=== PATIENT | female | born 1940 | race Caucasian/White ===

== ENCOUNTER 2021-06-18 16:12 | Emergency (ER) | payer OTHER ==
[~2021-06-18] VITALS: Ht 175.3 cm; Wt 102.1 kg
[2021-06-18] MEDS ORDERED: ACETAMINOPHEN500 M1 PO (16:26)
[2021-06-18] MEDS ORDERED: IRON325 PO (16:27)
[2021-06-18] MEDS ORDERED: CARVEDILOL25 MG PO (16:27)
[2021-06-18] MEDS ORDERED: HYDROCHLOROTH12.5 M1 PO (16:28)
[2021-06-18] MEDS ORDERED: LOPERAMIDE 2 MG2 M1 PO (16:28)
[2021-06-18] MEDS ORDERED: LEVO-T50 MCG PO (16:29)
[2021-06-18] MEDS ORDERED: COZAAR 25 MG TA25 M1 PO (16:29)
[2021-06-18] MEDS ORDERED: MELATONIN3 M1 PO (16:29)
[2021-06-18] MEDS ORDERED: MAXIMUM DAILY1 EACH PO (16:30)
[2021-06-18] MEDS ORDERED: OMEPRAZOLE 20 M20 M1 PO (16:31)
[2021-06-18] MEDS ORDERED: SENNA PLUS TAB1 EACH PO (16:31)
[2021-06-18] MEDS ORDERED: MYRBETRIQ25 MG PO (16:31)
[2021-06-18] MEDS ORDERED: KLOR-CON M2020 MEQ PO (16:31)
[2021-06-18] MEDS ORDERED: SEROQUEL 25 MG25 M1 PO (16:32)
[2021-06-18] MEDS ORDERED: VOLTAREN ARTHRI20 GM TOP (16:33)
[2021-06-18] MEDS ORDERED: ZOLOFT100 MG PO (16:33)
[2021-06-18 17:48] LABS: URINE BILIRUBIN NEGATIVE (Negative); URINE BLOOD 1+ (Negative); URINE COLOR YELLOW; URINE GLUCOSE-RANDOM* NEGATIVE (Negative); URINE KETONES NEGATIVE (Negative); URINE PROTEIN (DIPSTICK) NEGATIVE (Negative); URINE SPECIFIC GRAVITY 1.015 (1.005-1.035); URINE UROBILINOGEN 0.2 E.U./dl (0.2-1.0)
[2021-06-18 17:50] LABS: URINE LEUKOCYTES-REFLEX 3+ (Negative); URINE NITRITE-REFLEX POSITIVE (Negative)
[2021-06-18 17:51] LABS: ABSOLUTE NEUTROPHILS 5.3 thou/uL (1.4-8.2); BASOPHILS 0.6 % (0.0-2.0); EOSINOPHILS 2.5 % (0.0-3.0); HEMATOCRIT 37.5 % (37.0-47.0); HEMOGLOBIN 12.1 gm/dL (12.0-15.0); LYMPHOCYTES 31.4 % (24.0-44.0); MCHC 32.4 g/dL (28.0-37.0); MCV 89.5 fL (80.0-100.0); MONOCYTES 6.8 % (1.0-8.0); PLATELET COUNT 229 thou/uL (150-400); POLYS 58.7 % (36.0-66.0); RBC 4.18 mil/uL (4.20-5.00); RDW 14.9 % (10.5-14.5); WBC 9.1 thou/uL (4.0-11.0)
[2021-06-18 17:51] LABS: URINE CLARITY HAZY
[2021-06-18 17:57] LABS: AMP/METHAMP Negative (Negative); BARBITURATES Negative (Negative); BENZODIAZEPINES Negative (Negative); COCAINE Negative (Negative); METHADONE Negative (Negative); OPIATES Negative (Negative); PCP Negative (Negative)
[2021-06-18 18:02] LABS: ANION GAP 9 mmol/L (7-16); BUN 15 mg/dL (7-18); CALCIUM 8.6 mg/dL (8.5-10.1); CHLORIDE 106 mmol/L (98-107); CO2 27 mmol/L (21-32); CREATININE 0.9 mg/dL (0.6-1.0); GLUCOSE 73 mg/dL (74-106); POTASSIUM 3.2 mmol/L (3.5-5.1); SODIUM 142 mmol/L (136-145)
[2021-06-18 18:06] LABS: BACTERIA-REFLEX >30 Many /HPF (None Seen); SQUAMOUS 0-3 Few /LPF (0-3); URINE RBC 3-10 Few /HPF (NONE SEEN); URINE WBC-REFLEX >25 Many /HPF (0-5)
[2021-06-18 18:07] LABS: CASTS None Seen /LPF (None Seen); CRYSTALS None Seen /LPF (None Seen)
[2021-06-18 18:08] LABS: DIRECT BILIRUBIN 0.1 mg/dL (<0.1-0.2); SALICYLATE < 2.8 mg/dL (2.8-20.0); SGOT 27 U/L (15-37); SGPT 20 U/L (14-59); TOTAL BILIRUBIN 0.4 mg/dL (0.2-1.0); TOTAL PROTEIN 6.9 g/dL (6.4-8.2)
[2021-06-19 00:50] VITALS: BP 156/63
[2021-06-19] MEDS ORDERED: CARVEDILOL25 MG PO (02:12)
[2021-06-19] MEDS ORDERED: SLOW FE142 MG PO (02:13)
[2021-06-19] MEDS ORDERED: LOPERAMIDE 2 MG2 M1 PO (02:14)
[2021-06-19] MEDS ORDERED: HYDROCHLOROTHIA25 M1 PO (02:14)
[2021-06-19] MEDS ORDERED: COZAAR 25 MG TA25 M1 PO (02:15)
[2021-06-19] MEDS ORDERED: LEVO-T50 MCG PO (02:15)
[2021-06-19] MEDS ORDERED: MELATONIN3 M1 PO (02:16)
[2021-06-19] MEDS ORDERED: SUPER THERAVIT1 EACH PO (02:18)
[2021-06-19] MEDS ORDERED: MYRBETRIQ25 MG PO (02:19)
[2021-06-19] MEDS ORDERED: OMEPRAZOLE40 MG PO (02:19)
[2021-06-19] MEDS ORDERED: KLOR-CON M2020 MEQ PO (02:20)
[2021-06-19] MEDS ORDERED: SENNA PLUS TAB1 EACH PO (02:21)
[2021-06-19] MEDS ORDERED: SEROQUEL 25 MG25 MG PO (02:22)
[2021-06-19] MEDS ORDERED: VOLTAREN ARTHRI20 GM TOP (02:23)
[2021-06-19] MEDS ORDERED: ZOLOFT100 MG PO (02:23)
== END 2021-06-19 00:51 | disposition admitted as inpatient to this hospital (09) ==
LOC: ER 16:12
PROVIDERS: Nurse Practitioner
DX: F91.9 Conduct disorder, unspecified (principal); Z20.822 Contact with and (suspected) exposure to COVID-19; E78.5 Hyperlipidemia, unspecified; F02.80 Dementia in other diseases classified elsewhere, unspecified severity, without behavioral disturbance, psychotic disturbance, mood disturbance, and anxiety; I10 Essential (primary) hypertension; K21.9 Gastro-esophageal reflux disease without esophagitis; M81.0 Age-related osteoporosis without current pathological fracture; Z85.038 Personal history of other malignant neoplasm of large intestine; Z79.891 Long term (current) use of opiate analgesic; Z79.1 Long term (current) use of non-steroidal anti-inflammatories (NSAID); Z79.899 Other long term (current) drug therapy; Z88.5 Allergy status to narcotic agent; Z88.8 Allergy status to other drugs, medicaments and biological substances; Z91.041 Radiographic dye allergy status

== ENCOUNTER 2021-06-18 16:19 | Inpatient (IN) | payer OTHER ==
[~2021-06-18] VITALS: Ht 175.3 cm; Wt 86.6 kg
[2021-06-18] MEDS ORDERED: ACETAMINOPHEN500 M1 PO (16:26)
[2021-06-18] MEDS ORDERED: CARVEDILOL25 MG PO (16:27)
[2021-06-18] MEDS ORDERED: IRON325 PO (16:27)
[2021-06-18] MEDS ORDERED: LOPERAMIDE 2 MG2 M1 PO (16:28)
[2021-06-18] MEDS ORDERED: HYDROCHLOROTH12.5 M1 PO (16:28)
[2021-06-18] MEDS ORDERED: LEVO-T50 MCG PO (16:29)
[2021-06-18] MEDS ORDERED: MELATONIN3 M1 PO (16:29)
[2021-06-18] MEDS ORDERED: COZAAR 25 MG TA25 M1 PO (16:29)
[2021-06-18] MEDS ORDERED: MAXIMUM DAILY1 EACH PO (16:30)
[2021-06-18] MEDS ORDERED: OMEPRAZOLE 20 M20 M1 PO (16:31)
[2021-06-18] MEDS ORDERED: SENNA PLUS TAB1 EACH PO (16:31)
[2021-06-18] MEDS ORDERED: MYRBETRIQ25 MG PO (16:31)
[2021-06-18] MEDS ORDERED: KLOR-CON M2020 MEQ PO (16:31)
[2021-06-18] MEDS ORDERED: SEROQUEL 25 MG25 M1 PO (16:32)
[2021-06-18] MEDS ORDERED: VOLTAREN ARTHRI20 GM TOP (16:33)
[2021-06-18] MEDS ORDERED: ZOLOFT100 MG PO (16:33)
[2021-06-19 02:07] VITALS: BP 168/65
[2021-06-19] MEDS ORDERED: CARVEDILOL25 MG PO (02:12)
[2021-06-19] MEDS ORDERED: SLOW FE142 MG PO (02:13)
[2021-06-19] MEDS ORDERED: LOPERAMIDE 2 MG2 M1 PO (02:14)
[2021-06-19] MEDS ORDERED: HYDROCHLOROTHIA25 M1 PO (02:14)
[2021-06-19] MEDS ORDERED: LEVO-T50 MCG PO (02:15)
[2021-06-19] MEDS ORDERED: COZAAR 25 MG TA25 M1 PO (02:15)
[2021-06-19] MEDS ORDERED: MELATONIN3 M1 PO (02:16)
[2021-06-19] MEDS ORDERED: SUPER THERAVIT1 EACH PO (02:18)
[2021-06-19] MEDS ORDERED: MYRBETRIQ25 MG PO (02:19)
[2021-06-19] MEDS ORDERED: OMEPRAZOLE40 MG PO (02:19)
[2021-06-19] MEDS ORDERED: KLOR-CON M2020 MEQ PO (02:20)
[2021-06-19] MEDS ORDERED: SENNA PLUS TAB1 EACH PO (02:21)
[2021-06-19] MEDS ORDERED: SEROQUEL 25 MG25 MG PO (02:22)
[2021-06-19] MEDS ORDERED: VOLTAREN ARTHRI20 GM TOP (02:23)
[2021-06-19] MEDS ORDERED: ZOLOFT100 MG PO (02:23)
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
[2021-06-19 06:33] LABS: CHOLESTEROL 199 mg/dL (<200); HDL CHOLESTEROL 43 mg/dL (>40); LDL CHOLESTEROL 127 mg/dL (<100); TC:HDL 4.6 Ratio (Not establshd); TRIGLYCERIDE 147 mg/dL (<150); VLDL 29 mg/dL (<40)
[2021-06-19 06:34] LABS: SERUM ASSESSMENT Clear
[2021-06-19 09:09] LABS: ABSOLUTE NEUTROPHILS 5.4 thou/uL (1.4-8.2); BASOPHILS 0.4 % (0.0-2.0); EOSINOPHILS 2.4 % (0.0-3.0); HEMATOCRIT 38.2 % (37.0-47.0); HEMOGLOBIN 12.4 gm/dL (12.0-15.0); LYMPHOCYTES 25.3 % (24.0-44.0); MCH 29.3 pg (26.0-34.0); MCHC 32.5 g/dL (28.0-37.0); MCV 90.1 fL (80.0-100.0); MONOCYTES 6.7 % (1.0-8.0); PLATELET COUNT 205 thou/uL (150-400); POLYS 65.2 % (36.0-66.0); RBC 4.24 mil/uL (4.20-5.00); RDW 14.8 % (10.5-14.5); WBC 8.3 thou/uL (4.0-11.0)
[2021-06-19 09:21] LABS: ALBUMIN 2.9 g/dL (3.4-5.0); CALCIUM 8.4 mg/dL (8.5-10.1); CREATININE 0.7 mg/dL (0.6-1.0); MAGNESIUM 1.9 mg/dL (1.8-2.4); POTASSIUM 3.4 mmol/L (3.5-5.1); TOTAL BILIRUBIN 0.4 mg/dL (0.2-1.0); TOTAL PROTEIN 6.3 g/dL (6.4-8.2)
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
[2021-06-19 19:55] VITALS: BP 148/56
--- NOTE | 2021-06-19 21:27 | NUR ---
pATIENT HAS BEEN IN DAYROOM SINCE BEGINNING OF SHIFT, SLEEPING. PATIENT DID WAKE UP ENOUGH TO TAKE HS MEDICATIONS THAT WERE CRUSHED IN PUDDING. NO NEGATIVE BEHAVIORS THIS EVENING.
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
[2021-06-20 02:06] LABS: GLYCOHEMOGLOBIN (HGB A1C) 5.2 % (4.8-5.6)
[2021-06-20 11:08] VITALS: BP 146/85
--- NOTE | 2021-06-20 19:01 | NUR ---
Assumed pt care at 0700. Pt was alert and oriented to person. Assessments completed, vss. Denies si/hi, Denies pain. Took meds crushed in apple sauce, no difficulty noted. Refused 9AM meds this shift. Ambulates with a Margot chair. Incontinent of bowel and bladder. Uncooperative, combative and irritable with care. Pt is a fall risk, fall precaution in place. Pt is a moderate assist with care. 1300 pt was aggressive and agitated with care. Pt was redirected, pt continued to be aggressive. 1317 IM olanzapine was administered aggressive behavior. 1437 IM Geodon was administered for increased agitattion. Pt plays with meals, pt throws her food on the floor. Pt was redirected. AT this time pt is in the day room. Will continue to monitor.
[2021-06-20 19:20] VITALS: BP 155/61
--- NOTE | 2021-06-20 23:58 | NUR ---
PATIENT SITTING IN DAY ROOM THIS EVENING, REFUSED HS MEDICATIONS AND KEPT SWATTIN MY THANH AWAY. PATIENT GIVEN BACKUP OF ZYPREXA 5 MG IM. NO OTHER NEGATIVE BEHAVIORS NOTED.
[2021-06-21 06:08] LABS: CALCIUM 8.5 mg/dL (8.5-10.1); CREATININE 0.9 mg/dL (0.6-1.0); POTASSIUM 3.5 mmol/L (3.5-5.1)
--- NOTE | 2021-06-21 15:08 | NUR ---
PT UP TO CHAIR FOR ALL MEALS, DID NOT PARTICIPATE WITH GROUP ACTIVITIES. PT AFEBRILE, ADEQUATE UOP, NO BM, FAIR APPETITE. TOOK 1.5 HOUR NAP TODAY. PT HAS BEEN THOUROUGHLY UPDATED AND EDUCATED ON PT CONDITION AND POC. PT SLOWLY PROGRESSING TOWARDS POC.
[2021-06-21 19:30] VITALS: BP 115/76
[2021-06-21 19:56] VITALS: BP 115/76
--- NOTE | 2021-06-22 03:34 | NUR ---
PATIENT CARE WAS RESUMED AT 1900. SHE WAS SITTING IN THE DININIG AREA . ABLE TO COMUNICATE AND SHE DENIES PAINS. LUNGS ARE CLEAR BS ACTIVE X4 QUADS.SHE TOOK HER MEDS IN A PUDDING. SHE DENIES SI/AVH/HI. SHE IS INCONTINENT OF BOWEL AND BLADDER.ASSISTED WITH TRENT CARE, TRANSFERS AND ADLS. FALL PRECATION IN PLACE, YELLOW SOCK AND TOP ON. [id number] CHECKS ARE ONGING. CONTINUE CARE
[2021-06-22 10:23] VITALS: BP 151/64
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
--- NOTE | 2021-06-22 15:36 | NUR ---
Updates faxed to Mattie Dumont
--- NOTE | 2021-06-22 15:55 | NUR ---
Assumed pt care at 0700. pt was alert and oriented to person. Confused, combative agitated with care. Assessments completed, vital sign stable. Lungs clear, active bowel sound. No sign of si/hi noted. No c/o pain at this time. Incontinent of bowel and bladder this shift. No PRN meds given this shift. Pt spits out 9AM meds shift. Took meds crushed in yogurt, No difficulty noted. Ambulates with a Margot chair. Pt is currently in the day room awake will continue to monitor pt.
[2021-06-22 20:30] VITALS: BP 130/66
--- NOTE | 2021-06-23 01:02 | NUR ---
ASSUMED PT CAR ETHIS PM. PT WAS IN THE DAYROOM CONVERSING WITH STAFF. PT WAS PLEASANT AND COOPERATIVE. VS ARE WITHIN NORMAL RANGE. PT DID NOT VERBALIZE ANY CONCERNS AND NO SIGN OF DISTRESS WAS NOTED. MEDS WERE GIVEN PER EMAR ORDERS WITHOUT DIFFICULTY. FALL PRECAUTIONS IN PLACE. WILL CONTINUE TO MONITOR.
[2021-06-23 10:24] VITALS: BP 144/90
--- NOTE | 2021-06-23 12:40 | NUR ---
Alert and orientated to name only. Some coherent speech, other times confused. Denies SI/HI. Compliant with some meds crushed in yogurt, spit out potassium. Attempted to give liquid potassium and took approximately 3/4 dose. Resistant to taking rest of med. Breath sounds clear. Reg HR auscultated. Color pink with brisk capillary refill and palpable peripheral pulses. Brief dry. Active bowel sounds over soft, rounded abdomen. Milk of magnesia given per PRN order. Currently sitting in dining room without s/o distress.
[2021-06-23 19:28] VITALS: BP 122/62
--- NOTE | 2021-06-23 20:26 | NUR ---
Assumed care on 06/23/21 @ 1900, cooperative with assessment and drinking water at this time. HRRR, Lung CTA diminished, ABD n x 4Q, oriented to person only. Fall risk, precautions in place. Will continue to monitor for safety and comfort as per unit protocol.
[2021-06-24 07:01] VITALS: BP 136/62
--- NOTE | 2021-06-24 18:23 | NUR ---
PATIENT CARE ASSUMED AT 0700, PATIENT SITTING IN THE COMMON AREA ON A TREMAYNE/CHAIR, PATIENT IS ALERT TO SELF, NOT COOPERATIVE WITH CARE, TOOK MEDICATION, REGULAR HR AUSCULTATED COLOR PINK WITH BRISK CAPILLARY REFILL NO EDEMA NOTED, ABULATE WITH TREMAYNE/CHAIR, PATIENT IS INCONTINENT OF BLADDER AND BOWEL, FALL PRECAUTION IN PLACE, PATIENT DENIES SI/HI, WILL CONTINUE TO MONITOR PATIENT FOR SAFETY AND BEHAVIOR.
[2021-06-24 19:50] VITALS: BP 124/84
[2021-06-24 20:20] VITALS: BP 122/105
--- NOTE | 2021-06-25 03:12 | NUR ---
PATINET CARE WAS RESUMED AT 1900.SHE WAS AWAKE SITTING AT THE TABLE ON TREMAYNE CHAIR. LUNGS ARE CLEAR BS ACTIVE X4 QUADS. SHE TOOK HER MEDS IN APPLE SAUCE AND DENIES AYALA/SI/HI. SHE IS INCONTINENT OF BOWEL AND BLADDER. SHE IS ON [id number] CHECK AND TRENT CARE PROVIDED. CONTINUE CARE
[2021-06-25 06:47] VITALS: BP 166/64
--- NOTE | 2021-06-25 06:54 | NUR ---
06-24-2021--Information (Updates) sent through the sixth. No notesfor the 7th were available. 06-25-2021--729--Ptinted out notes for 06-24 and fax3d them this AM.
[2021-06-25 10:09] VITALS: BP 144/70
--- NOTE | 2021-06-25 17:46 | NUR ---
Assumed pt care at 0700. pt was alert and oriented to person. Assessments completed, vss. Lungs clear, active bowel sound. pt was confused due to dementia. Uncooperative, irritable and combative with care. Pt refused 9AM MEDS and 1500 meds. Incontinent of bowel and bladder. No sign of acute distres noted upon assessments. Pt became aggressive toward staff, pt was redirected. pt continue to be irritable and agitated. Dr Harris was notified. 1608 IM olanzapine was ordered and administered. Ambulates with a Margot chair. At this time pt is in the day room. Pt is fall risk, fall precaution in place. Will continue to monitor.
[2021-06-25 20:16] VITALS: BP 160/107
--- NOTE | 2021-06-25 23:36 | NUR ---
Assumed care on 06/25/21 @ 1900, seated in peace chair in the day room. HRRR, Lungs CTA bilat, ABD N x 4Q A&Ox1 with confusion noted secondary to dementia. Incontinent of B&B, incontinent care provided when required. VSS. Took meds crushed in ice cream, except refused p.o. laxative. Max assist x2 staff required to transfer to bed and give incontinent care. Bed in low position, bed alarm set, will continue to monitor for safety and comfort as per unit protocol.
--- NOTE | 2021-06-26 10:44 | NUR ---
RT Progress Note- Nicolle is present in the milieu throughout each day and is also present in most programming. She continues to be very disoriented, limiting her active participation. At times, Nicolle's constant talking and questioning is disruptive to group discussions and she can be difficult to redirect. CAR BUILDER and RT team will continue to provide programming
--- NOTE | 2021-06-26 15:33 | NUR ---
Received call from - asking for an update on patient. Reviewed notes with him. He was appreciative for the update, but was dissapointed that she is still struggling. Stated that he was pleased with her care and treatment plan. Looking forward to hearing from Cara later this week. I did explain that Cara was out until .
--- NOTE | 2021-06-26 17:49 | NUR ---
Assumed pt care at 0700. Pt was oriented to self. Assessments completed, vss. pt was confused, combative, uncooperative and irritable with care. No sign of si/hi noted. No c/o pain this shift. Lungs clear, active bowel sound. Took meds crushed in ice cream with lot of reassurance. Ambulates with a Margot chair. Incontinent of bladder x2. Pt is a high fall risk. Fall precaution in place. At 1700, Pt was irritable and combative with care. Pt was redirected, PRN shot were administered this shit. At this time pt is in the day room. Will continue to [facility].
[2021-06-26 19:40] VITALS: BP 137/71
[2021-06-26 19:55] VITALS: BP 137/71
[2021-06-27 10:59] VITALS: BP 125/65
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
--- NOTE | 2021-06-27 23:48 | NUR ---
At onset of data reduction technician pt was sitting in peace chair in day room. Pt was alert and only oriented to self. Pt talks to herself and calls out to others. Pt is disorganized and confused. Cannot answer questions appropriately and unable to engage in meaningful conversation. Pt took her meds crushed in pudding. Pt did push RN's hands away when being offered meds but did take the meds eventually. Fall precautions are in place. Pt is a 2 person assist when transferring. Will continue to monitor.
[2021-06-28 09:46] VITALS: BP 158/84
[2021-06-28 15:59] VITALS: BP 127/90
--- NOTE | 2021-06-28 18:02 | NUR ---
Alert to name only. Conversive at times with coherent speech, other times confused speech. Denies SI/HI. Noncompliant with AM and PM meds, took noon meds with apple sauce. Olanzapine given IM d/t noncompliance. Breath sounds clear. Reg HR auscultated. Color pink with brisk capillary refill and palpable peripheral pulses. Incontinent of yellow urine. Active bowel sounds over soft, rounded abdomen. Able to stand and take a few steps with assistance. In gerichair most of day without s/o distress.
[2021-06-28 19:33] VITALS: BP 133/71
--- NOTE | 2021-06-29 01:31 | NUR ---
At onset of shift change pt was sitting awake in peace chair in day room. This shift pt was alert and oriented only to self. Pt continues to call out and cannot answer questions appropriately. Pt was cooperative with medications and vital signs. Pt has difficutly following directions for example during head to toe assessment pt does not inhate deeply when told to. Fall precautions are in place. Will continue to monitor.
[2021-06-29 07:30] VITALS: BP 170/70
--- NOTE | 2021-06-29 09:24 | NUR ---
Nutrition followup: pt continues on [facility] unit with plans for stay over the weekend per physician. Is oriented to self only. Dx dementia with aggression. Po intake had averaged ~30% of meals however past 48 hrs intake is improved to 50-100% of meals. Average 43% last several days. Ensure is offered daily and noted pt did drink 100% on 06/27. BM 06/27. No new weight has been obtained since 06/19. Continue to request updated weight. Low risk with interventions in place.
--- NOTE | 2021-06-29 10:45 | NUR ---
Alert and happy calling out to staff and peers. Alert to name and place only, denies SI/HI. Initially resistant to taking AM meds but took in ice cream on third approach. Took Iron and Multivitamin whole with K+ mixed with H2O. Required assistance to stand. Breath sounds clear. Reg HR auscultated. Color pink with brisk capillary refill and palpable peripheral pulses. +1 edema in feet. Brief dry. Active bowel sounds over soft rounded abdomen. States she needs to poop but then refused to sit on commode. Currently sitting in day room with peers without s/o distress, chair alarm in place.
[2021-06-29 11:20] VITALS: BP 126/70
--- NOTE | 2021-06-29 16:35 | NUR ---
Updates faxed to Mattie Dumont
[2021-06-29 16:55] VITALS: BP 126/61
[2021-06-29 21:05] VITALS: BP 130/58
--- NOTE | 2021-06-30 05:28 | NUR ---
Assumed care of patient at 1900. Patient resting in bed with eyes open at beginning of shift et isolated in room most of shift. VSWNL. AOX2. Health assessment with no abnormalities noted at present time. Denies any pain or discomfort at present time. Unable to assess SI/HI/AVH at present time due to cognitive deficit but does not appear to be in any acute distress. Large bowel movement noted this shift. Patient's code status changed this shift to No Code per provider. COVID specimen sent to lab for processing. Compliant with medication regimen this shift. Currently resting in bed with eyes open. Will continue to monitor per unit protocol.
[2021-06-30 11:14] VITALS: BP 142/71
[2021-06-30 12:55] VITALS: BP 142/71
[2021-06-30 16:28] VITALS: BP 130/68
--- NOTE | 2021-06-30 19:07 | NUR ---
Resummed care from overnight shift this am. Client was in gerichair in activity area and asked "am I " when asked orientation questions. Client was assured that she was still living, and reoriented to questions. Client was oriented to self and year at this time. Client was reoriented to being in hospital, and told staff "my son is out there- no I'm not" when reoriented. Client then asked staff "why are you wearing a little black dress" in regard to scrubs, and was reoriented again to hospital setting. Client denied any pain at this time when asked, stating "no, why would I." Client denied any depression and anxiety, stating that she was going to leave with her son soon. Client's lung sounds were clear; bowel sounds present. Client denied any visual or audio hallucinations, though has been observed talking to air and speaking outloud to no one. Client states that there are people she knows in the room when asked. Client had to be reoriented to taking her medications several times, trying to put her meds in water, and trying to give them to other people. Client refused to drink her potassium solution and refused to drink her haldol lactate solution, stating it wasn't cold. Staff put ice in both. Client then stated, it wasn't sweet enough. Staff put artifical sweetener in it. Client then stated she didn't like the taste, so some tea was put it in. Client still continued to refuse both solutions, but took her pill medications whole. Client was informed that she had to take her medication for mood, or that she would need a prn per orders. Client refused. Dr. Ribeiro was called to confirm that zyprexa 7.5 could be used for refusal of haldol lactate (as client recently switched to haldol solution from seroquel) and approved prn. Client was given prn at this time, and moved arm, shouting, "you little bitch, don't touch me" when staff tried to apply a bandaid. During lunch, haldol solution was mixed with ensure, and client drank all. During dinner dosage, client refused haldol and carvidilol medications. PRN for refusal was given, with client accepting injection this time without issue. Client is currently in chair sitting calmly. No further concerns.
[2021-06-30 20:25] VITALS: BP 138/86
--- NOTE | 2021-07-01 03:56 | NUR ---
06-30-21 CARE TRANSFERRED 1899. LATER PT AAOX1, VSS, RR EVEN AND NONLABORED ON RA. PT HAD WORD SALAD AND NOT MAKING SENSE, PLESANTLY CONFUSED, AND CALM AND COOPERATIVE DURING NURSING ASSESSMENT. DURING MEDICATION ADMIN PT HAD NO DIFFICULTIES TAKING WHOLE WITH WATER. PT BED WAS ADJUSTED FOR COMFORT; PT WILL CONTINUE TO BE MONITOR PER [facility].
[2021-07-01 10:14] VITALS: BP 142/71
--- NOTE | 2021-07-01 11:53 | NUR ---
Faxed updates to Mattie Dumont
--- NOTE | 2021-07-01 16:25 | NUR ---
Assumed pt care at 0700. Oriented to self Assessments completed, vss. Lungs clear, active bowel sound. Refused taking her meds. Combative, hitting and spitting. Ambulates with a Margot chair. Pt is a max assist due to pt being combative and uncooperative with care. No sign of acute distress noted at this time. No sign of si/hi. No c/o pain at this time. Pt is incontinent of bowel and bladder. IM PRN 10mg olanzapine administered at 0919 and 1752 for refusal of meds and aggressive behaviors. AT this time pt is getting toileted. Will continue to monitor.
[2021-07-01 19:32] VITALS: BP 141/79
--- NOTE | 2021-07-02 02:45 | NUR ---
DARNELL [facility] WAS RESUNED AT 1900. SHE IS ALERT AND ABLE TO VERBALISE SOME NEED WITH SOME CONFUSSION. DARNELL WAS SITING ON THE RECLINIER AT [facility] DINING AREA. SHE DENIES SI/AVH/HI. SH TOOK HER MEDICATION WHOLE. INCONTINENT IF BOWEL AND BLADDER. SHE TOK HER MEDS WITH APPLE SAUCE. ASSISTED WITH TRENT CARE AND ADLS. [id number] TURN. CONTINUE CARE
[2021-07-02 06:53] VITALS: BP 150/90
[2021-07-02 10:48] VITALS: BP 141/83
[2021-07-02 11:45] VITALS: BP 141/83
--- NOTE | 2021-07-02 12:57 | NUR ---
RESUMMED CARE FROM OVERNIGHT SHIFT THIS AM, PATIENT SITTING IN DAY ROOM QUIET. PATIENT ALERT TO SELF ONLY PATIENT DOES NOT UNDERSTAND ABOUT SI/HI/AH/VH. PATIENT ATE BREAKFAST SPIT MEDICATION OUT, I GAVE IM BACKUP OF OLANZIPINE 10 MG. PATIENTS ABDOMEN SOFT BOWEL SOUNDS PRESENT PATIENTS LUNGS CLEAR. PATIENT HAS CONFUSION AND FORGETFUL. PATIENT HAS NOT DISPLAYED ANY BEHAVIORS AT PRESENT. WILL CONTINUE TO MONITOR PATIENT FOR SAFETY AND BEHAVIORS.
[2021-07-02 19:23] VITALS: BP 154/82
[2021-07-02 20:40] VITALS: BP 154/82
--- NOTE | 2021-07-03 03:20 | NUR ---
PATIENT HAS BEEN IN HER ROOM SLEEPING SINCE BEGINNING OF THE SHIFT. PT IS CALM AND NO SIGNS OF SI/HI/AVH NOTED. PATIENT IS A FALL RISK. SHE IS UP WITH WALKER. VSS. BED IN LOW POSITION AND BED ALARM IS ON. ROUTINE ROUNDS TO ASSESS SAFETY AND STATUS OF PATIENT.
--- NOTE | 2021-07-03 07:07 | NUR ---
AT 0638 PT'S BP WAS TAKEN AND WAS 145/81. P68. [employer] NOT ALLOWING ME TO SCAN HER HCTZ 25MG PO TAB. THIS WAS GIVEN TO HER AT 0645. JESSICA, PHARMACIST WAS NOTIFIED OF ISSUE AND STATES HE WILL WORK ON THIS WITH [employer].
[2021-07-03 10:09] VITALS: BP 145/81
--- NOTE | 2021-07-03 11:25 | NUR ---
RT Progress Note- Nicolle has shown no changes since previous progress note dating 06/26. She continues to be minimally engaged d/t poor attention and concentration.
--- NOTE | 2021-07-03 17:58 | NUR ---
Assumed pt care at 0700. Pt was alert and oriented to self. Assessments completed, vss. Confused and occassionally irritable. NO SIGN OF SI/HI NOTED. No c/o pain at this time. Took meds crushed in ice cream, no difficulty noted. Ambulates with a Margot chair. No sign of acute distress noted at this time. Pt is a max assist with care. Incontinent of bowel and bladder. Pt had a bowel movement this shift. Pt is a fall risk, fall precaution in place. At this time pt is in the day room. Will continue to monitor
[2021-07-03 20:39] VITALS: BP 137/60
[2021-07-03 20:50] VITALS: BP 137/60
--- NOTE | 2021-07-04 04:32 | NUR ---
PATIENT SAT UP IN DINING ROOM THIS EVENING IN TREMAYNE CHAIR AT A TABLE. PATIENT WAS ALERT, PLEASANT AND COOPERATIVE. PATIENT TOOK HER MEDS WHOLE WITH WATER. PATIENT CAN BE COMBATIVE WITH CARES AT TIMES. PATIENT WAS ASSIST X 2 TO BED. PATIENT IS A/0X1. DENIES PAIN. NO INDICATION OF SI/HI NOTED. NO AVH NOTED. PATIENT VSS. ROUTINE ROUNDS TO ASSESS SAFETY AND STATUS OF PATIENT. CONTINUING TO MONITOR.
[2021-07-04 10:39] VITALS: BP 114/61
[2021-07-04 12:16] VITALS: BP 145/81
--- NOTE | 2021-07-04 12:52 | NUR ---
RESUMMED CARE FROM OVERNIGHT SHIFT THIS AM, PATIENT SITTING IN DAY ROOM AT THE TABLE. PATIENT ALERT TO SELF ONLY PATIENT IS CONFUSED AND NOT ABLE TO TELL ME ABOUT SI/HI/AH/VH AT PRESENT. PATIENT ATE BREAKFAST REFUSED HALDOL SO IN OLANZIPINE GIVEN. DR MORLEY HAS ORDERED HALDOL DECONATE 100 MG DUE TO PATIENT NOT WANTING TO TAKE MEDICATION. PATIENTS ABDOMEN SOFT BOWEL SOUNDS PRESENT. PATIENTS LUNGS CLEAR AN EKG ORDERED THIS AM FOR PATIENT TO CHECK QT WAVES. PATIENT QUIET MOST TIMES COOPERATIVE WILL CONTINUE TO MONITOR PATIENT FOR SAFETY AND BEHAVIORS.
--- NOTE | 2021-07-04 15:45 | EKG ---
[address] [place] [address] ELECTROCARDIOGRAM REPORT Name: CAROLINA GEE Room #: 526A-A ADM IN M.R.#: [id number] Admission: 06/19/21 Attend Phys: Michael Harris DO Discharge: Date of : 42 Report #: [id number] [facility] Test Date: 2021-07-04 Test Time: 13:08:45 Pat Name: CAROLINA GEE Department: Room: [facility] A Gender: F Graduate Student Instructor: ZEENAT : 1940 Requested By: Michael Harris Order Number: [id number] MD: Estrada Ghosh Measurements Intervals [place] Rate: 68 P: 8 WA: 186 QRS: -30 QRSD: 94 T: 8 QT: 424 QTc: 451 Interpretive Statements Sinus rhythm Abnormal R-wave progression, late transition Left ventricular hypertrophy No previous ECG available for comparison Electronically Signed On 07-04-2021 15:45:19 ADZING AND BORING MACHINE OPERATOR by Estrada Ghosh [email or web address] <ELECTRONICALLY SIGNED> By: Estrada Ghosh MD, [facility] 07/04/21 1545 1308 [id number] Estrada Ghosh MD, FACC /EPI
[2021-07-04 19:15] VITALS: BP 146/87
[2021-07-04 22:12] VITALS: BP 146/87
--- NOTE | 2021-07-04 22:19 | NUR ---
[facility]. Client was in activity area resting in [facility] during this time. Client presented fussy and restless, as client had been calling for "Tommie" who is her and looking for him despite staff reorienting her to situation several times. Client presented oriented to self only, and when asked any questions, would state answers that did not make sense- client would say "3 years" when asked what year it was, "a picnic" when asked where she was, and "Nicolle Santa" when asked the date. Client stated "tired" when asked about pain, and stated that she was looking for tissues right after, not staying on assessment topic. Client was not oriented enough when asked about depression/anxiety, and si/hi to answer questions, and instead spoke about her pudding cup and how she wanted a tissue. When handed a tissue, client could hand it back to staff and state "you keep it; go refrigerate it." Client could also not answer questions about visual and audio hallucinations, but has been seen asking for her "Tommie" and talking to the air. Lung sounds clear; bowel sounds present. Client took medication crushed in pudding during this time, and was then escorted to room to change brief and go to bed. Last BM 07/04 on this shift. No further concerns at this time.
--- NOTE | 2021-07-05 01:45 | NUR ---
07-04-21 CARE TRANSFERRED 0000 OBSERVED PT RESTING IN BED WITH EYES CLOSED, VSS, RR EVEN AND NONLABORED ONRA. PT WILL CONTINUE TO BE MONITOR PER [facility].
[2021-07-05 10:22] VITALS: BP 156/88
--- NOTE | 2021-07-05 11:33 | NUR ---
MICHAEL contacted [facility] and Process Checker at [facility] concerning discaharge. MICHAEL gave a verbal update. Discharge set for 07/09/2021 @ 1300. [place] will set up transportion with [employer]. Michael did call and speak with Pt's DPOA, Darrell, concerning the discharge.
[2021-07-05 20:11] VITALS: BP 161/78
[2021-07-05 22:46] VITALS: BP 161/78
--- NOTE | 2021-07-05 23:58 | NUR ---
Assumed care at 1500. Pt was in gerichair sitting at table. Pt presented slightly agitated, yelling for her "Tommie" at this time. Pt kept balling up tissue, and stating that tissue was a person during this time. Pt was directed to focus on groups and television as distractions. Pt would shake head when redirected, and continue to ball up tissue. Tissue was taken away from pt and, pt was redirected again. During dinner, pt was given medication in liquid and icecream to help with medication administation. Pt took her medication without issue at this time. After dinner, pt was put into bed and brief changed. Last known BM 07/05 in morning. When given night time medications, pt was disoriented x4, and was unable to state name, date, situation, or place. Pt stated "I don't understand" when asked about depression and anxiety, and stated "it's weird what you're saying when asked about suicidal and homicidal intent. Pt stated "you have a white fence" when asked about hallucinations, and stated "where is it" when asked to clarify. Pt was unable to voice pain, but did not appear to be in any pain at this time, as pt was resting in bed prior to assessment. Pt took medication crushed in yogurt, and was repositioned at this time. Clear lung sounds; bowel sounds present. No further concerns.
[2021-07-06 09:45] VITALS: BP 129/98
--- NOTE | 2021-07-06 10:45 | NUR ---
Nutrition followup: Pt very confused. Spoke with nsg. PO intake appears to have improved from last eval, averaging 57% of meals past several days. 60-100% intake of ensure which she receives daily. Nsg reports pt will feed self first part of meal but then starts to play with it. Will continue to eat more if fed and given direction/assist. On MVI and ferrous sulfate. Weights stable on unit. Planned discharge on 07/09. Low nutrition risk.
[2021-07-06 11:20] LABS: HEMOGLOBIN 12.4 gm/dL (12.0-15.0); MCH 29.1 pg (26.0-34.0); MCHC 32.6 g/dL (28.0-37.0); MCV 89.3 fL (80.0-100.0); RBC 4.26 mil/uL (4.20-5.00); RDW 14.6 % (10.5-14.5); WBC 13.1 thou/uL (4.0-11.0)
[2021-07-06 11:30] LABS: CREATININE 0.8 mg/dL (0.6-1.0); POTASSIUM 3.6 mmol/L (3.5-5.1)
--- NOTE | 2021-07-06 12:01 | NUR ---
Alert and orientated to name only. Confused speech, repeatedly calling out for [place]. No speech, behavior suggestive of SI/HI. Refused PO Iron after multiple attempts to give. Drank approximately 1/3 of potassium, refused rest. Able to walk with assistance several steps with slightly unsteady gait. Breath sounds clear. Reg HR auscultated. Color pink with brisk capillary refill and palpable peripheral pulses. Continent of yellow urine per toilet. Active bowel sounds over soft, rounded abdomen. Moderate green brown stool per toilet. Active bowel sounds over soft, rounded abdomen. Currently in day room with peers. No s/o distress.
[2021-07-06 20:07] VITALS: BP 136/49
--- NOTE | 2021-07-07 05:02 | NUR ---
Assumed care of patient at 1900. Patient calm et cooperative this shift. VSWNL. Health assessment with no abnormalities noted at present time. Ambulates with assistance of peace-chair. Took medications crushed in pudding without difficulty. Unable to assess SI/HI/AVH due to cognitive deficits but does not display any signs of acute emotional crisis at present time. Currently resting in bed with eyes closed. Due to have COVID swab this am to be sent to the lab for analysis. Will continue to monitor per unit protocol.
[2021-07-07 10:28] VITALS: BP 148/52
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
[2021-07-07 19:54] VITALS: BP 154/73
--- NOTE | 2021-07-08 03:47 | NUR ---
Assumed care of patient at 1900. Pt calm et cooperative this shift. VSWNL. Health assessment with no abnormalities noted at present time. Ambulates with assistance of peace-chair or w/c. Took medications crushed in pudding without difficulty. Unable to assess SI/HI/AVH due to cognitive deficit but does not exhibit symptoms of acute emotional distress at present time. Currently resting in bed with eyes closed. Will continue to monitor per unit protocol.
[2021-07-08 10:06] VITALS: BP 151/98
[2021-07-08 10:24] VITALS: BP 151/98
--- NOTE | 2021-07-08 13:46 | NUR ---
PATIENT CARE ASSUMED AT 0700, PATIENT SITTING ON THE TREMAYNE/CHAIR IN THE COMMON AREA AWAKE AND CALM, PATIENT ALERT TO SELF ONLY, TOOK MEDICATION CRUSHED WITH MILK, BREATH SOUND CLEAR, ACTIVE BOWEL SOUND WITH SOFT AND ROUND ABDOMEN, SKIN INTACT, NO EDEMA NOTED, PATIENT IS INCONTINENT OF BOWEL AND BLADDER, VSS, PATIENT AMBULATE ON A TREMAYNE/CHAIR, MAX ASSIST, FALL PRECAUTION IN PLACE, WILL CONTINUE TO MONITOR PATIENT FOR SAFETY AND BEHAVIOR. PATIENT HAD A BOWEL MOVEMENT TODAY.
[2021-07-08 19:50] VITALS: BP 123/53
[2021-07-08 20:49] VITALS: BP 123/53
--- NOTE | 2021-07-09 02:18 | NUR ---
DARNELL CARE WAS RESUMED AT 1900. SHE IS AWAKE AND CONFUSED. FIONA ASSIT WITH CARE AND ABLE TO VERBALISE SOME CONCERN. SHE TOOK HER MED WITH A PUDDING. SHE IS IS INCONTINIET OF BOWEL AND BLADDER. FIONA ASSIT WITH CARE. SHE DENIES PAINS/AVH/SI/HI. CONTINUE CARE AND Q12 MINUTES CHECK AND MANAGE.BED IS LOW, LOCKED AND ALARMED.
[2021-07-09 08:00] VITALS: BP 158/79
[2021-07-09] MEDS ORDERED: CARVEDILOL25 MG PO (11:49)
[2021-07-09] MEDS ORDERED: HALOPERIDOL2 MG/1 ML PO (11:54)
[2021-07-09] MEDS ORDERED: PROTONIX40 M2 PO (11:56)
[2021-07-09] MEDS ORDERED: HALDOL DEC100 MG/1 M IM (11:59)
[2021-07-09 16:38] VITALS: BP 140/72
--- NOTE | 2021-07-09 17:12 | NUR ---
Assumed pt care at 0700. Oriented to person. Assessments completed, vss. Lungs clear, active bowel sound. No sign of si/hi noted. No c/o pain. Took meds crushed, no difficulty noted. Ambulates with a Margot chair. Incontinent of bowel and bladder. Pt was calm all day. Refused 9A meds, spit meds out upon administration. Pt was a fall risk. Fall precaution in place. Pt was d/c at at 1455 via w/c with her belongings. Report was called at 1213 to Micaela.
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
== END 2021-07-09 16:55 | DRG 884 ==
LOC: SBH
PROVIDERS: Hospitalist; ADMIT Psychiatry & Neurology Psychiatry; ATTEND Psychiatry & Neurology Psychiatry
DX: F03.91 Unspecified dementia, unspecified severity, with behavioral disturbance (principal); F01.51 Vascular dementia, unspecified severity, with behavioral disturbance; N39.0 Urinary tract infection, site not specified; E87.6 Hypokalemia; Z20.822 Contact with and (suspected) exposure to COVID-19; E78.5 Hyperlipidemia, unspecified; I10 Essential (primary) hypertension; K21.9 Gastro-esophageal reflux disease without esophagitis; M81.0 Age-related osteoporosis without current pathological fracture; Z85.038 Personal history of other malignant neoplasm of large intestine; Z88.8 Allergy status to other drugs, medicaments and biological substances; Z88.6 Allergy status to analgesic agent; Z91.041 Radiographic dye allergy status; Z87.891 Personal history of nicotine dependence
CPT/HCPCS: 10880